=== PATIENT | female | born 1965 | race African-American/Black ===

== ENCOUNTER 2019-10-03 15:56 | Emergency (ER) | payer MEDICAID ==
[~2019-10-03] VITALS: Ht 167.6 cm; Wt 92.5 kg
[~2019-10-03 15:56] MED LIST: OLAN20TA13 PO; ROPI1TAB PO
[2019-10-03 16:08] VITALS: BP 111/83
[2019-10-03] MEDS ORDERED: cefTRIAXone SOD 1,000 MG VL IM ONE (17:00)
[2019-10-03] MEDS ORDERED: IBUPROFEN 800 MG TAB PO ONE (17:00)
== END 2019-10-03 17:34 | disposition home or self-care (01) ==
LOC: ER 15:56
DX: J02.9 Acute pharyngitis, unspecified (principal); I10 Essential (primary) hypertension; Z90.49 Acquired absence of other specified parts of digestive tract; Z79.899 Other long term (current) drug therapy
CPT/HCPCS: 96372; 99283; J0696

== ENCOUNTER 2019-10-17 17:43 | Emergency (ER) | payer MEDICAID ==
[~2019-10-17] VITALS: Ht 167.6 cm; Wt 93.0 kg
[2019-10-17 18:30] LABS: Basophils # (auto) 0 10 ^3/uL (0-0.2); Basophils % (auto) 0.7 % (0.0-2.0); Eosinophils # (auto) 0 10 ^3/uL (0-0.8); Eosinophils % (auto) 0.6 % (0.0-7.0); Hematocrit 41.5 % (36.0-46.0); Lymphocytes % (auto) 41.1 % (10.0-50.0); Mean Corpuscular Hemoglobin 28.8 pg (28.0-32.0); Mean Corpuscular Hgb Conc. 33.6 g/dL (32.0-36.0); Mean Corpuscular Volume 85.6 fL (80.0-100.0); Monocytes # (auto) 0.2 10 ^3/uL (0-1.3); Neutrophils # (auto) 2.5 10 ^3/uL (1.6-8.6); Neutrophils % (auto) 52.6 % (37.0-80.0); Nucleated Red Blood Cells % 0.1 %; Platelet Count (auto) 313 10^3/uL (140-450); Red Blood Cells 4.85 10^6/uL (4.0-5.20); Red Cell Distribution Width 14.6 % (11.8-14.3); White Blood Cell 4.8 10^3/uL (4.4-10.8)
[2019-10-17] MEDS ORDERED: ASPirin 81 mg TAB PO ONE (18:45)
[2019-10-17 18:47] LABS: Albumin 3.4 g/dL (3.4-5.0); Calcium 9.4 mg/dL (8.5-10.1); Potassium 3.6 mmol/L (3.5-5.1)
[2019-10-17 18:51] LABS: BUN/Creatinine Ratio 9.1; Bilirubin, Total 0.2 mg/dL (0.2-1.0); Total Protein 7.8 g/dL (6.4-8.2)
[2019-10-17 19:25] VITALS: BP 132/84
[2019-10-17 20:05] LABS: Amphetamine Screen, Urine NEGATIVE (NEGATIVE); Barbiturate Scree,Urine NEGATIVE (NEGATIVE); Benzodiazephine Screen, Urine NEGATIVE (NEGATIVE); Cannabinoid Screen, Urine NEGATIVE (NEGATIVE); Cocaine Screen, Urine NEGATIVE (NEGATIVE); Opiate Scree,Urine NEGATIVE (NEGATIVE); Phencyclidine Screen, Urine NEGATIVE (NEGATIVE)
== END 2019-10-17 19:51 | disposition home or self-care (01) ==
LOC: ER 17:43
DX: F32.89 Other specified depressive episodes (principal); R07.89 Other chest pain; I10 Essential (primary) hypertension; F20.9 Schizophrenia, unspecified; E78.5 Hyperlipidemia, unspecified; Z86.73 Personal history of transient ischemic attack (TIA), and cerebral infarction without residual deficits; Z90.89 Acquired absence of other organs; Z79.899 Other long term (current) drug therapy
CPT/HCPCS: 36415; 70450; 71045; 80053; 80307; 83735; 84484; 85025; 93005

== ENCOUNTER → 2019-11-05 | Emergency (ER) | payer MEDICAID ==
[~2019-11-05] VITALS: Ht 167.6 cm; Wt 93.0 kg
[~2019-11-05] MED LIST changes: +HALOPERIDOL LACTATE 5 MG/ML INJ VIAL IM ONE; +LORazepam 2MG/ML-1ML VIAL IM ONE; +POTASSIUM CHL 20 Meq TABLET PO ONE; +diphenhdrAMINE HCL 25 MG CAP PO ONE; +diphenhdrAMINE HCL 50 MG/1 ML VL IM ONE
[2019-11-05 18:49] LABS: Basophils # (auto) 0 10 ^3/uL (0-0.2); Basophils % (auto) 0.9 % (0.0-2.0); Eosinophils # (auto) 0 10 ^3/uL (0-0.8); Eosinophils % (auto) 0.7 % (0.0-7.0); Hematocrit 42.8 % (36.0-46.0); Hemoglobin 14.1 g/dL (12.2-16.2); Lymphocytes # (auto) 2.5 10 ^3/uL (0.4-5.4); Lymphocytes % (auto) 43.2 % (10.0-50.0); Mean Corpuscular Hemoglobin 28.2 pg (28.0-32.0); Mean Corpuscular Volume 85.4 fL (80.0-100.0); Monocytes # (auto) 0.4 10 ^3/uL (0-1.3); Monocytes % (auto) 7.1 % (0.0-12.0); Neutrophils # (auto) 2.8 10 ^3/uL (1.6-8.6); Neutrophils % (auto) 48.1 % (37.0-80.0); Nucleated Red Blood Cells % 0.2 %; Platelet Count (auto) 279 10^3/uL (140-450); Red Blood Cells 5.02 10^6/uL (4.0-5.20); Red Cell Distribution Width 14.4 % (11.8-14.3); White Blood Cell 5.7 10^3/uL (4.4-10.8)
[2019-11-05 19:05] LABS: Albumin 3.8 g/dL (3.4-5.0); BUN/Creatinine Ratio 13.6; Calcium 9.5 mg/dL (8.5-10.1)
[2019-11-05 19:08] LABS: Acetaminophen < 2.0 ug/mL (10-30); Bilirubin, Total 0.5 mg/dL (0.2-1.0); Salicylate < 1.7 mg/dL (2.8-20.0); Total Protein 7.9 g/dL (6.4-8.2)
[2019-11-05 19:21] LABS: Potassium 2.8 mmol/L (3.5-5.1)
[2019-11-05 19:55] LABS: Urine Bacteria NONE SEEN /hpf (None Seen); Urine Blood Negative /uL (Negative); Urine Hyaline Cast FEW /lpf (0 - 2); Urine Mucus FEW (None Seen); Urine Specific Gravity 1.024 (1.001-1.035); Urine WBC 2 /hpf (0 - 5)
[2019-11-05 20:11] LABS: Alcohol, Urine < 3.0 mg/dL (0-5); Amphetamine Screen, Urine POSITIVE (NEGATIVE); Barbiturate Scree,Urine NEGATIVE (NEGATIVE); Benzodiazephine Screen, Urine NEGATIVE (NEGATIVE); Cannabinoid Screen, Urine NEGATIVE (NEGATIVE); Cocaine Screen, Urine NEGATIVE (NEGATIVE); Opiate Scree,Urine NEGATIVE (NEGATIVE); Phencyclidine Screen, Urine NEGATIVE (NEGATIVE)
[2019-11-06 16:28] VITALS: BP 104/58
== END | disposition home or self-care (01) ==
LOC: EDUNIT# 15:16 → ER 15:26 → EDBD 15:26
DX: F32.9 Major depressive disorder, single episode, unspecified (principal); R45.851 Suicidal ideations; F20.9 Schizophrenia, unspecified; E87.6 Hypokalemia; E78.5 Hyperlipidemia, unspecified; I10 Essential (primary) hypertension
CPT/HCPCS: 36415; 71045; 80053; 80307; 80320; 80329; 81001; 83735; 85025; 96372